=== PATIENT | female | born 1960 | race Caucasian/White ===

== ENCOUNTER → 2023-06-21 | Outpatient (CLI) | payer BC ==
[2023-06-25 18:10] LABS: HPV 16 Negative (Negative); HPV 18 Negative (Negative); HPV OTHER HR TYPES Negative (Negative)
== END ==
LOC: LAB SHORT 16:41 → LAB 16:41
PROVIDERS: Advanced Practice Midwife
DX: Z01.419 Encounter for gynecological examination (general) (routine) without abnormal findings (principal)
CPT/HCPCS: 87624; G0145

== ENCOUNTER → 2023-07-01 | Outpatient (CLI) | payer BC | LOC: LAB 07:57 → LAB SHORT 07:57 | DX: L82.1 Other seborrheic keratosis (principal) | CPT/HCPCS: 88305 ==